=== PATIENT | female | born 1955 | race Caucasian/White ===

== ENCOUNTER → 2018-12-18 | Outpatient (CLI) | payer OTHER | END | disposition home or self-care (01) | LOC: CFH 12:39 | PROVIDERS: ATTEND Obstetrics & Gynecology | DX: R92.2 Inconclusive mammogram (principal) | CPT/HCPCS: 76641 ==

== ENCOUNTER 2019-12-13 16:23 | Emergency (ER) | payer OTHER ==
[~2019-12-13] VITALS: Ht 144.8 cm; Wt 45.0 kg
[2019-12-13 16:36] VITALS: BP 124/81
--- NOTE | 2019-12-13 17:33 | NUR ---
TASK RN NOTE: PT SITTING UP IN GURNEY. NAD NOTED AT THIS TIME. REGISTRATION IN DOORWAY. AT BEDSIDE.
== END 2019-12-13 18:14 | disposition home or self-care (01) ==
LOC: ED 17:21
DX: B34.9 Viral infection, unspecified (principal)
CPT/HCPCS: 71045; 99283

== ENCOUNTER → 2020-01-22 | Outpatient (CLI) | payer OTHER | END | disposition home or self-care (01) | LOC: CFH 15:11 | PROVIDERS: ATTEND Obstetrics & Gynecology | DX: N60.02 Solitary cyst of left breast (principal); R92.2 Inconclusive mammogram | CPT/HCPCS: 76641 ==